=== PATIENT | female | born 1950 | race Caucasian/White ===

== ENCOUNTER 2021-10-25 07:40 | Inpatient (IN) | payer MEDICAID ==
[2021-10-25] VITALS (7 sets, daily range): BP systolic 99–168; BP diastolic 34–72
[~2021-10-25] VITALS: Ht 152.4 cm; Wt 77.7 kg
[2021-10-25] MEDS ORDERED: DILTIAZEM HCL 5MG/ML 5ML VIAL IV ONE (08:00)
[2021-10-25 08:09] LABS: BASOPHILS % 0.6 % (0.0-2.0); EOSINOPHILS % 2.1 % (0.0-5.0); HEMATOCRIT. 35.9 % (36.0-48.0); HEMOGLOBIN. 11.5 g/dL (12.0-16.0); LYMPHOCYTES % 7.3 % (20.0-50.0); MEAN CORPUSCULAR HEMOGLOBIN 28.8 pg (28.0-32.0); MEAN CORPUSCULAR VOLUME 90.1 fL (81.0-99.0); MEAN PLATELET VOLUME 7.9 fl (7.4-10.4); MONOCYTES % 4.2 % (2.0-8.0); NEUTROPHILS % 85.8 % (40.0-76.0); PLATELET 350 x1000/uL (130-400); RED BLOOD CELL COUNT 3.99 mill/uL (4.2-5.4); RED CELL DISTRIBUTION WIDTH 17.1 % (11.6-14.6)
[2021-10-25 08:19] LABS: CHLORIDE 99 mEq/L (98-107)
[2021-10-25 08:35] LABS: T4 FREE 1.48 ng/dL (0.76-1.46)
[2021-10-25] MEDS ORDERED: LEVOFLOXACIN 500MG PREMIX 100 ML IV ONE (08:45)
[2021-10-25 08:56] LABS: PARTIAL THROMBOPLASTIN TIME 23.4 sec (23.4-31.0); PROTHROMBIN TIME 10.6 sec (9.6-11.0)
[2021-10-25] MEDS ORDERED: ACETAMINOPHEN 325MG TABLET PO PRN (10:15)
[2021-10-25] MEDS ORDERED: ONDANSETRON HCL 4MG/2ML INJ IV PRN (10:15)
[2021-10-25] MEDS ORDERED: CEFTRIAXONE 1 G PREMIX 50 ML IV SCH (10:45)
[2021-10-25] MEDS ORDERED: ENOXAPARIN 80MG/0.8ML SYR SUBCUT SCH (12:00)
[2021-10-25] MEDS: CEFTRIAXONE 1,000 MG in DEXTROSE 5% WATER 50 ML IV SCH (12:59)
[2021-10-25] MEDS: DILTIAZEM HCL 30MG TABLET PO SCH ×3 (13:00→23:36)
[2021-10-25] MEDS: SEVELAMER CARBONATE 800 MG TABLET PO SCH (17:30)
[2021-10-26] VITALS (9 sets, daily range): BP systolic 141–167; BP diastolic 39–74
[2021-10-26] MEDS: DILTIAZEM HCL 30MG TABLET PO SCH ×2 (05:06→11:58)
[2021-10-26] MEDS: SEVELAMER CARBONATE 800 MG TABLET PO SCH ×2 (08:55→13:00)
[2021-10-26] MEDS ORDERED: ENOXAPARIN 80MG/0.8ML SYR SUBCUT SCH (09:00)
[2021-10-26] MEDS ORDERED: FOLIC ACID/VITAMIN B COMP W-C TABLET PO SCH (09:00)
[2021-10-26] MEDS ORDERED: DILT180C66 MT ×2 (11:01→11:46)
[2021-10-26] MEDS: CEFTRIAXONE 1,000 MG in DEXTROSE 5% WATER 50 ML IV SCH (11:57)
== END 2021-10-26 14:59 | disposition home or self-care (01) | DRG 201 ==
LOC: ER 07:40 → ENRESERV 08:50 → 5EST 09:00 → EDBEDREQ 09:10 → 5EST 17:19
PROVIDERS: ADMIT Internal Medicine; ATTEND Internal Medicine
DX: I48.91 Unspecified atrial fibrillation (principal); I50.33 Acute on chronic diastolic (congestive) heart failure; N18.6 End stage renal disease; I27.20 Pulmonary hypertension, unspecified; E87.1 Hypo-osmolality and hyponatremia; D63.1 Anemia in chronic kidney disease; E11.22 Type 2 diabetes mellitus with diabetic chronic kidney disease; I13.2 Hypertensive heart and chronic kidney disease with heart failure and with stage 5 chronic kidney disease, or end stage renal disease; I34.0 Nonrheumatic mitral (valve) insufficiency; E78.5 Hyperlipidemia, unspecified; Z82.49 Family history of ischemic heart disease and other diseases of the circulatory system; Z99.2 Dependence on renal dialysis
CPT/HCPCS: 36415; 71045; 80048; 80053; 83605; 83735; 83880; 84439; 84443; 84481; 84484; 85025; 93005; 93306; 99291; J0696; J1650; J1956; J3490; J7060